=== PATIENT | male | born 1980 | race Two or more races ===

== ENCOUNTER 2016-11-22 10:37 | Emergency (ER) | payer BC ==
[2016-11-22 11:12] VITALS: BP 140/71; PULSE 78; TEMP 98.1; BMI 28.7
--- NOTE | 2016-11-22 12:16 | PDOC ---
History of Present Illness - General Chief Complaint: Injury Stated Complaint: LT ANKLE PAIN/ SWOLLEN Time Seen by Provider: 11/22/16 12:11 History Source: Patient Exam Limitations: No Limitations - History of Present Illness Initial Comments: CHIEF COMPLAINT: 36 y/o afebrile male with no significant PMH c/o left ankle pain and swelling. HISTORY OF PRESENT ILLNESS: The patient was playing basketball 2 days ago and twisted his ankle in an eversion fashion. He states he was able to walk on it and go to work yesterday but today it hurts a lot. He iced it and used an SHIVAM bandage yesterday as well. He hasn't taken anything for the pain. he denies numbness/tingling to affected extremity. Vital signs on arrival are within normal limits. REVIEW OF SYSTEMS: GENERAL/CONSTITUTIONAL: No fever/chills. No weakness. No weight change. MUSCULOSKELETAL: +left ankle pain and swelling. No neck or back pain. SKIN: No rash or easy bruising. NEUROLOGIC: No headache, vertigo, loss of consciousness, or loss of sensation. PHYSICAL EXAM: VITAL_SIGNS: within normal limits GENERAL_APPEARANCE: alert, cooperative, mild obvious discomfort with ambulation. MENTAL_STATUS: speech clear, oriented X 3, responds appropriately to questions. NEURO: motor intact and sensory intact in injured extremity. EXTREMITIES: good pulse in injured extremity; Volar aspect of left foot is edematous without erythema. TTP of medial and lateral malleolus of left ankle, lateral worse than medial. Full passive flexion, extension, inversion and eversion of left ankle with most pain on eversion. No TTP or bulges of achilles tendon. Pt can actively flex and extend his left foot. SKIN: warm, dry, good color. Past History - Past Medical History Allergies/Adverse Reactions: Allergies Allergy/AdvReac Type Severity Reaction Status Date / Time No Known Allergies Allergy Verified 11/22/16 11:09 Other medical history: DENIES. - Psycho/Social/Smoking Cessation Hx Suicidal Ideation: No Smoking History: Never smoked *Physical Exam - Vital Signs Last Vital Signs Temp Pulse Resp BP Pulse Ox 98.1 F 78 19 140/71 97 11/22/16 11:10 11/22/16 11:10 11/22/16 11:10 11/22/16 11:10 04/04/17 11:10 Medical Decision Making - Medical Decision Making A/P: 36 y/o male with left ankle sprain. He is ambulatory but with pain therefore imaging not necessary at this time. Will give PO motrin, ankle air cast and RICE instructions. Will provide with ortho referral should his symptoms not improve. Pt instructed to return to the ER if his symptoms worsen. The patient verbalizes understanding of all instructions, has no further questions and is awaiting discharge. *DC/Admit/Observation/Transfer Diagnosis at time of Disposition: Left ankle sprain Qualifiers: Encounter type: initial encounter Involved ligament of ankle: unspecified ligament Qualified Code(s): S93.402A - Sprain of unspecified ligament of left ankle, initial encounter - Discharge Dispostion Disposition: HOME Condition at time of disposition: Good - Referrals Referrals: Fortunato Adkins MD [Staff Physician] - 1 week - Patient Instructions Printed Discharge Instructions: DI for Ankle Sprain, How To Perform RICE (Rest , Ice, Compress, Elevate) Additional Instructions: Discharge Instructions: -Take 600mg of over the counter Ibuprofen every 6 hours with food for pain/ swelling -Use air cast for comfort and support -Elevate and ice your ankle when resting -Follow up with Dr. Adkins in 1 week if no improvement in symptoms -Return to the ER with any worsening or concerning symptoms. Print Language: CITIZEN OF [place] - Post Discharge Activity Work/School Note: Back to Work
[2016-11-22] MEDS ORDERED: IBUPROFEN 600 MG TABLET (FP) PO ONE ×2 (12:25)
== END 2016-11-22 12:56 | disposition home or self-care (01) ==
LOC: JERFT 10:37 → JER 10:37 → JERFT 12:56
PROC: 2W3MX1Z Immobilization of Left Lower Extremity using Splint (ICD-10-PCS; principal; 2016-11-22)
DX: S93.402A Sprain of unspecified ligament of left ankle, initial encounter (principal); X50.1XXA Overexertion from prolonged static or awkward postures, initial encounter; Y93.01 Activity, walking, marching and hiking; Y92.89 Other specified places as the place of occurrence of the external cause
CPT/HCPCS: 99281-25

== ENCOUNTER 2019-06-29 09:16 | Emergency (ER) | payer BC ==
[2019-06-29 09:27] VITALS: BP 117/73; PULSE 68; BMI 29.0
--- NOTE | 2019-06-29 10:07 | PDOC ---
History of Present Illness <Tiny Lloyd - Last Filed: 06/29/19 11:06> - History of Present Illness Initial Comments: 06/29/19 10:01 CHIEF COMPLAINT: right toe pain HISTORY OF PRESENT ILLNESS: 38 yo M presents to ED with right great toe pain and swelling x 4 days. Patient believes the pain began while he was working out at the gym 4 days ago and the pain has persisted since. Patient has not taken any medication for pain. . No recent travel or sick contacts. PAST MEDICAL HISTORY: Denies past medical history FAMILY HISTORY: Denies SOCIAL HISTORY: Denies tobacco, alcohol, illicit drug use. SURGICAL HISTORY: Denies ALLERGIES: No known drug allergies REVIEW OF SYSTEMS General/Constitutional: Denies fever or chills. Denies weakness, weight change. HEENT: Denies change in vision. Denies ear pain or discharge. Denies sore throat. Cardiovascular: Denies chest pain or shortness of breath. Respiratory: Denies cough, wheezing, or hemoptysis. Gastrointestinal: Denies nausea, vomiting, diarrhea or constipation. Denies rectal bleeding. Genitourinary: Denies dysuria, frequency, or change in urination. Musculoskeletal: Right great toe pain. Skin and breasts: Denies rash or easy bruising. Neurologic: Denies headache, vertigo, loss of consciousness, or loss of sensation. Psychiatric: Denies depression or anxiety. PHYSICAL EXAM General Appearance: Well-appearing, appropriately dressed. No apparent distress , no intoxication. HEENT: EOMI, PERRLA, normal ENT inspection, normal voice, TMs normal, pharynx normal. No conjunctival pallor. No photophobia, scleral icterus. Neck: Supple. Trachea midline. No tenderness, rigidity, carotid bruit, stridor , lymphadenopathy, or thyromegaly. Respiratory/Chest: Lungs CTAB. No shortness of breath, chest tenderness, respiratory distress, accessory muscle use. No crackles, rales, rhonchi, stridor , wheezing, dullness Cardiovascular: RRR. S1, S2. No JVD, murmur, bradycardia, tachycardia. Vascular Pulses: Dorsalis-Pedis (R): 2+, Dorsalis-Pedis (L): 2+ Gastrointestinal/Abdominal: Normal bowel sounds. Abdomen soft, non-distended. No tenderness or rebound tenderness. No organomegaly, pulsatile mass, guarding , hernia, hepatomegaly, splenomegaly. Lymphatic: No adenopathy, tenderness. Musculoskeletal/Extremities: Mild erythema to R great toe with TTP just proximal to base of nail bed. Full ROM to toe, neurovascularly intact. FROM of all other extremities, normal capillary refill. Pelvis Stable. No CVA tenderness. No tenderness to extremities, pedal edema, swelling, erythema or deformity. Integumentary: Appropriate color, dry, warm. 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 Fully oriented, alert. Appropriate mood/affect. Motor strength 5/5. No appreciable EOM palsy, facial droop or sensory deficit. <Hellen Jackson - Last Filed: 06/29/19 11:59> - General Chief Complaint: Pain Stated Complaint: RT FOOT SWOLLEN Time Seen by Provider: 06/29/19 09:55 Past History <Tiny Lloyd - Last Filed: 06/29/19 11:06> - Past Medical History COPD: No - Psycho Social/Smoking Cessation Hx Smoking History: Never smoked Have you smoked in the past 12 months: No Information on smoking cessation initiated: No Hx Alcohol Use: No Drug/Substance Use Hx: No Substance Use Type: None Hx Substance Use Treatment: No <Hellen Jackson - Last Filed: 06/29/19 11:59> - Past Medical History Allergies/Adverse Reactions: Allergies Allergy/AdvReac Type Severity Reaction Status Date / Time No Known Allergies Allergy Verified 06/29/19 09:24 Home Medications: Ambulatory Orders Ibuprofen 600 mg PO TID #30 tablet 06/29/19 *Physical Exam - Vital Signs Last Vital Signs Temp Pulse Resp BP Pulse Ox 68 16 117/73 100 06/29/19 09:25 06/29/19 09:25 06/29/19 09:25 06/29/19 09:25 <Tiny Lloyd - Last Filed: 06/29/19 11:06> - Vital Signs Last Vital Signs Temp Pulse Resp BP Pulse Ox 68 16 117/73 100 06/29/19 09:25 06/29/19 09:25 06/29/19 09:25 06/29/19 09:25 <Hellen Jackson - Last Filed: 06/29/19 11:59> ED Treatment Course - RADIOLOGY Radiology Studies Ordered: Category Date Time Status TOE(S) RIGHT [RAD] Stat Radiology 06/29/19 09:56 Ordered <Hellen Jackson - Last Filed: 06/29/19 11:59> Medical Decision Making - Medical Decision Making 06/29/19 11:06 The patient was seen and evaluated in conjunction with midlevel provider under my direct supervision, ancillary studies were reviewed. I agree with the plan as outlined with SANDY Jackson. HPI, workup/dispo as outlined. VS reviewed, wnl. xray unremarkable for infection/bony abnormalities. anticipate discharge, pcp followup, return precautions 06/29/19 11:06 <Tiny Lloyd - Last Filed: 06/29/19 11:06> - Medical Decision Making 06/29/19 10:07 38 yo M presents to ED with right great toe pain and swelling x 4 days. -toe x-ray x-ray negative. will order uric acid to r/o gout given atraumatic erythema and swelling to great toe. 06/29/19 11:57 uric acid wnl post op shoe applied. NSAIDS for pain. . Advised patient to take medication as prescribed and follow up with podiatry if symptoms persist past 1 week. Advised patient of signs and symptoms for return to ED. Patient verbalized understanding and agrees to plan. <Hellen Jackson - Last Filed: 06/29/19 11:59> Discharge <Tiny Lloyd - Last Filed: 06/29/19 11:06> - Discharge Information Problems reviewed: Yes - Admission No <Hellen Jackson - Last Filed: 06/29/19 11:59> - Discharge Information Clinical Impression/Diagnosis: Toe sprain Qualifiers: Encounter type: initial encounter Qualified Code(s): S93.509A - Unspecified sprain of unspecified toe(s), initial encounter Condition: Stable Disposition: HOME - Additional Discharge Information Prescriptions: Ibuprofen 600 mg PO TID #30 tablet - Follow up/Referral Referrals: Gabino Stein MD [Staff Physician] - - Patient Discharge Instructions Patient Printed Discharge Instructions: DI for Toe Sprain - Post Discharge Activity Work/Back to School Note: Back to Work
== END 2019-06-29 12:13 | disposition home or self-care (01) ==
LOC: JERFT 09:16 → JER 09:16
DX: S93.511A Sprain of interphalangeal joint of right great toe, initial encounter (principal); X58.XXXA Exposure to other specified factors, initial encounter; Y93.9 Activity, unspecified; Y92.89 Other specified places as the place of occurrence of the external cause; Y99.8 Other external cause status
CPT/HCPCS: 36415; 73660-TC-FY; 84550; 99281-25

== ENCOUNTER 2021-05-25 08:51 | Emergency (ER) | payer BC ==
[2021-05-25 09:01] VITALS: BP 152/84; PULSE 64; TEMP 98.3; BMI 29.0
[2021-05-25] MEDS ORDERED: DIPHTH,PERTUSS(ACELL),TET 0.5 ML DISP.SYRIN IM ONE ×2 (10:11→10:23)
== END 2021-05-25 10:28 | disposition home or self-care (01) ==
LOC: JER 08:51
PROC: 0HQFXZZ Repair Right Hand Skin, External Approach (ICD-10-PCS; principal; 2021-05-25)
PROC: 3E0234Z Introduction of Serum, Toxoid and Vaccine into Muscle, Percutaneous Approach (ICD-10-PCS; 2021-05-25)
DX: S69.91XA Unspecified injury of right wrist, hand and finger(s), initial encounter (principal); S60.511A Abrasion of right hand, initial encounter; W25.XXXA Contact with sharp glass, initial encounter
CPT/HCPCS: 73130-TC-RT-FY; 90715; 99284-25

== ENCOUNTER 2023-10-23 21:52 | Observation (INO) | payer BC ==
[2023-10-23 21:55] VITALS: BMI 30.3
[2023-10-24] MEDS ORDERED: ASPIRIN 81 MG CHEWABLE TABLETS ONE (00:05)
[2023-10-24] MEDS: ASPIRIN 81 MG CHEWABLE TABLETS PO ONE (00:08)
[2023-10-24 00:10] LABS: BASO % 1.5 % (0-2.0); EOS % 2.5 % (0-4.5); HEMATOCRIT 48.9 % (35.4-49); HEMOGLOBIN 16.5 GM/dL (11.7-16.9); LYMPH % 31.2 % (8-40); MCH 26.2 pg (25.7-33.7); MCHC 33.8 g/dl (32.0-35.9); MEAN CELL VOLUME 77.5 fl (80-96); MEAN PLT VOLUME 6.8 fl (7.5-11.1); MONO % 6.8 % (3.8-10.2); PLATELET COUNT 501 10^3/uL (134-434); RBC 6.31 M/mm3 (4.00-5.60); WHITE BLOOD COUNT 9.7 K/mm3 (4.0-10.0)
[2023-10-24 00:20] LABS: INR 1.1 (0.83-1.09); PROTHROMBIN TIME (PATIENT) 12.8 SEC (9.7-13.0)
[2023-10-24 00:23] LABS: ACTIVATED PTT 25.6 SECONDS (25.2-36.5)
[2023-10-24 00:30] LABS: CHLORIDE 104 mmol/L (98-107); POTASSIUM 5.5 mmol/L (3.5-5.1); SODIUM 137 mmol/L (136-145)
[2023-10-24 00:33] LABS: ALBUMIN 3.6 g/dl (3.4-5.0); ANION GAP 6 mmol/L (4-13); BLOOD UREA NITROGEN 11.7 mg/dL (7-18); CO2 27 mmol/L (21-32); GLUCOSE,RANDOM 99 mg/dL (74-106); MAGNESIUM 2.3 mg/dL (1.8-2.4)
[2023-10-24 00:36] LABS: CREATININE 1.3 mg/dL (0.55-1.3); SGOT/AST 26 U/L (15-37); SGPT/ALT 58 U/L (13-61)
[2023-10-24 00:37] LABS: BILIRUBIN,TOTAL 0.7 mg/dL (0.2-1)
[2023-10-24 00:38] LABS: TOT PROT 8.4 g/dl (6.4-8.2)
[2023-10-24 00:39] LABS: ALK PHOS 68 U/L (45-117)
[2023-10-24 01:11] LABS: EPI CELLS 4 /uL (0-25.1); HYALINE CASTS 0 /uL (0-3.1); PH,URINE 6.5 (5.0-8.0); URINE APPEARANCE CLEAR; URINE BACTERIA 3 /uL (0-1359); URINE BILIRUBIN NEGATIVE (NEGATIVE); URINE COLOR YELLOW; URINE GLUCOSE (UA) NEGATIVE (NEGATIVE); URINE KETONE 1+ (NEGATIVE); URINE LEUK ESTERASE NEGATIVE (NEGATIVE); URINE NITRITE NEGATIVE (NEGATIVE); URINE PROTEIN TRACE (NEGATIVE); URINE RBC 231 /uL (0-23.9); URINE UROBILINOGEN 0.2 mg/dL (0.2-1.0); URINE WBC 11 /uL (0-25.8)
[2023-10-24] MEDS: SODIUM CHLORIDE 1,000 ML IV STA (01:22)
[2023-10-24] MEDS ORDERED: FAMOTIDINE 20 MG/50 ML IVPB 20 MG/50 ML MG IVPB ONE (02:03)
[2023-10-24] MEDS ORDERED: ACETAMINOPHEN INJECTION 100 ML IVPB ONE (02:03)
[2023-10-24] MEDS ORDERED: ONDANSETRON 4 MG/2 ML VIAL ONE (02:03)
[2023-10-24] MEDS: ONDANSETRON 4 MG/2 ML VIAL IVPUSH ONE (02:09)
[2023-10-24] MEDS: ACETAMINOPHEN 1000 MG/100 ML BAG IVPB ONE (02:09)
[2023-10-24] MEDS: FAMOTIDINE 20 MG/50 ML IVPB 20 MG/50 ML MG IVPB ONE (02:59)
[2023-10-24 08:29] LABS: HEMATOCRIT 46.8 % (35.4-49); HEMOGLOBIN 15.7 GM/dL (11.7-16.9); MCH 26.1 pg (25.7-33.7); MCHC 33.5 g/dl (32.0-35.9); MEAN PLT VOLUME 7.5 fl (7.5-11.1); PLATELET COUNT 484 10^3/uL (134-434); RDW 14.8 % (11.9-15.9); WHITE BLOOD COUNT 9.1 K/mm3 (4.0-10.0)
[2023-10-24 08:41] LABS: POTASSIUM 5.1 mmol/L (3.5-5.1)
[2023-10-24 08:51] LABS: ALBUMIN 3.3 g/dl (3.4-5.0); CREATININE 1.2 mg/dL (0.55-1.3)
[2023-10-24 08:52] LABS: BLOOD UREA NITROGEN 12.4 mg/dL (7-18); CALCIUM 9.2 mg/dL (8.5-10.1); MAGNESIUM 2.3 mg/dL (1.8-2.4)
[2023-10-24 08:54] LABS: BILIRUBIN,TOTAL 0.7 mg/dL (0.2-1); TOT PROT 7.6 g/dl (6.4-8.2)
[2023-10-24 08:55] LABS: PHOSPHOROUS 4.2 mg/dL (2.5-4.9)
[2023-10-24] MEDS: SODIUM CHLORIDE 1,000 ML IV SCH ×2 (10:18)
[2023-10-24] MEDS: FAMOTIDINE 20 MG TABLET PO SCH (10:19)
[2023-10-24] MEDS: ONDANSETRON 4 MG/2 ML VIAL IVPUSH PRN (13:16)
[2023-10-24] MEDS: KETOROLAC TROMETHAMINE 15 MG/ML VIAL IVPUSH ONE (15:40)
[2023-10-24] MEDS: amLODIPine BESYLATE 5 MG TABLET (FP) PO SCH (17:22)
[2023-10-25 02:32] VITALS: RESP 16
[2023-10-25 08:09] LABS: HEMOGLOBIN 15.1 GM/dL (11.7-16.9); MCH 25.9 pg (25.7-33.7); MCHC 32.7 g/dl (32.0-35.9); MEAN CELL VOLUME 79.1 fl (80-96); MEAN PLT VOLUME 7.3 fl (7.5-11.1); PLATELET COUNT 469 10^3/uL (134-434); RBC 5.81 M/mm3 (4.00-5.60); RDW 14.8 % (11.9-15.9); WHITE BLOOD COUNT 7.6 K/mm3 (4.0-10.0)
[2023-10-25 08:34] LABS: POTASSIUM 5.4 mmol/L (3.5-5.1)
[2023-10-25 08:35] LABS: CALCIUM 9.7 mg/dL (8.5-10.1)
[2023-10-25 08:39] LABS: CREATININE 1.2 mg/dL (0.55-1.3)
[2023-10-25] MEDS: PANTOPRAZOLE 40 MG TABLET PO SCH (11:03)
[2023-10-25 13:50] VITALS: BP 127/67; PULSE 62; TEMP 98.3
[2023-10-25] MEDS ORDERED: IBUPROFEN 600 MG TABLET (FP) PO SCH (14:00)
== END 2023-10-25 14:50 | disposition home or self-care (01) ==
LOC: JER 21:52 → JERBED 10-24 04:10 → J4S 10-24 05:28
PROVIDERS: ADMIT Internal Medicine; ATTEND Internal Medicine
PROC: 3E033NZ Introduction of Analgesics, Hypnotics, Sedatives into Peripheral Vein, Percutaneous Approach (ICD-10-PCS; principal; 2023-10-24)
PROC: 3E0333Z Introduction of Anti-inflammatory into Peripheral Vein, Percutaneous Approach (ICD-10-PCS; 2023-10-24)
PROC: 3E033GC Introduction of Other Therapeutic Substance into Peripheral Vein, Percutaneous Approach (ICD-10-PCS; 2023-10-24)
PROC: 3E0337Z Introduction of Electrolytic and Water Balance Substance into Peripheral Vein, Percutaneous Approach (ICD-10-PCS; 2023-10-24)
DX: A08.4 Viral intestinal infection, unspecified (principal); D75.839 Thrombocytosis, unspecified; R94.31 Abnormal electrocardiogram [ECG] [EKG]; I10 Essential (primary) hypertension; R10.13 Epigastric pain; R19.7 Diarrhea, unspecified; R77.8 Other specified abnormalities of plasma proteins; R07.89 Other chest pain; Z29.89 Encounter for other specified prophylactic measures; R11.2 Nausea with vomiting, unspecified
CPT/HCPCS: 0241U-QW; 36415; 71046-TC-FY; 71275-TC; 74176-TC; 76705-TC; 80048; 80053; 81003; 82550; 82553; 83690; 83735; 84100; 84484; 85025; 85027; 85610; 85730; 93005; 93010; 93306-TC; 99285-25; G0378; J0131; Q9967